=== PATIENT | male | born 1960 | race Caucasian/White ===

== ENCOUNTER 2018-08-03 07:02 | Emergency (ER) | payer OTHER ==
[~2018-08-03] VITALS: Ht 172.7 cm; Wt 90.7 kg
[2018-08-03 07:17] VITALS: BP 166/96
[2018-08-03] MEDS ORDERED: ERYTHROMYCIN E3.5 G3 OPHTHALMIC (07:35)
== END 2018-08-03 07:41 | disposition home or self-care (01) ==
LOC: M.ERS 07:02
DX: H10.9 Unspecified conjunctivitis (principal)